=== PATIENT | female | born 1970 ===

== ENCOUNTER → 2025-05-08 13:19 | Outpatient (BNVA) | payer OTHER, SELFPAY | PROVIDERS: Visit Provider Physician Assistant Medical | DX: S63.592A Other specified sprain of left wrist, initial encounter (principal); W01.198A Fall on same level from slipping, tripping and stumbling with subsequent striking against other object, initial encounter; T81.33XA Disruption of traumatic injury wound repair, initial encounter; M79.89 Other specified soft tissue disorders | CPT/HCPCS: 73110; 73130; 99202 ==

== ENCOUNTER 2025-05-14 11:54 | Outpatient (REF) | payer OTHER, SELFPAY ==
--- NOTE | ~2025-05-14 | XR_ITS ---
EXAMINATION: XR HAND 3 OR MORE VIEWS LEFT HISTORY: M79.642 - Pain in left hand COMPARISON: Comparison is made with the prior examination dated 05/08/2025. FINDINGS: Three views of the left hand are submitted. Osseous mineralization is normal. The possible triquetral fracture noted on plain films of the left wrist 05/08/2025 is poorly visualized. Tiny osseous densities of the dorsal aspect of the DIP joints of the index and middle fingers may be the result of old trauma. The joint spaces are preserved. The soft tissues are unremarkable. XR/XR hand LT min 3V IMPRESSION: The possible triquetral fracture noted on plain films of the left wrist is poorly visualized. Electronically signed by: Amado Groves MD 05/14/2025 02:31 PM EDI
== END 2025-05-14 11:55 | disposition home or self-care (01) ==
LOC: HO.HOSX 11:54
DX: S62.112A Displaced fracture of triquetrum [cuneiform] bone, left wrist, initial encounter for closed fracture (principal); M65.4 Radial styloid tenosynovitis [de Quervain]; M77.8 Other enthesopathies, not elsewhere classified; W01.198A Fall on same level from slipping, tripping and stumbling with subsequent striking against other object, initial encounter; Y93.9 Activity, unspecified; Y92.219 Unspecified school as the place of occurrence of the external cause; Y99.0 Civilian activity done for income or pay
CPT/HCPCS: 73130

== ENCOUNTER 2025-05-14 12:56 | Outpatient (AMB) | payer OTHER, SELFPAY ==
--- NOTE | 2025-05-14 13:10 | MHC.OFFVIS ---
Vital Signs 05/14/25 13:11 Height 5 ft 3 in Weight 212 lb BMI 37.6 Handedness Right Intake Visit Reasons: FC: ? LT thumb triquetral fx & TFCC involvement Intake Note: Estela is a 54 year old right hand dominant female, new patient, who presents today for a Fracture Care visit status post Work-related Injury to the Left Hand, DOI: 04/17/25. Patient referred by [facility] for a possible Left Thumb Triquetral Fracture & Triangular Fibrocartilage Complex Involvement status post fall. 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 On day of her injury, 04/17/25, she says she tripped and fell in front of her work building on an out stretched hand. Says she is having pain on radial and ulnar aspect of the leftt hand with occasional radiation through the fingers. 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 HPI HPI FC: ? LT thumb triquetral fx & TFCC involvement: Details: Estela is a 54 year old right hand dominant female, new patient, who presents today for a Fracture Care visit status post Work-related Injury to the Left Hand, DOI: 04/17/25. Patient referred by [facility] for a possible Left Thumb Triquetral Fracture & Triangular Fibrocartilage Complex Involvement status post fall. 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 On day of her injury, 04/17/25, she says she tripped and fell in front of her work building on an out stretched hand. Says she is having pain on radial and ulnar aspect of the leftt hand with occasional radiation through the fingers. 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 [facility] Medical History Injury of left thumb Social History Current occupational status: employed Current occupation: accredited legal secretary Review of Systems Const All systems reviewed & are unremarkable except as noted in HPI and below Physical Exam Vital Signs: BMI result Body Mass Index 37.6 Extrem Other: Patient is alert, oriented, and in no acute distress. Neuro: Normal sensation of the tips of all digits of the left hand at this time Vascular: Cap refill brisk Pain: Tenderness to palpation of the left dorsal hand and wrist Minimal tenderness to palpation of the ulnar styloid Minimal tenderness to palpation of the radial styloid No tenderness to anatomical snuffbox or scaphoid tubercle Positive Micaela on the left Pain with resisted extension in the ulnar aspect of the dorsal left wrist ROM: Patient is able to make a closed fist and extend all digits of the left hand fully Range of motion of the left wrist full and intact, but painful in the ulnar aspect Skin: No lacerations or abrasions. General: No ecchymosis, erythema, or evidence of infection. Psych: Appears grossly normal Affect normal Attitude cooperative Office Procedures AMB Fracture Care Fracture Billing Code: Fracture Billing Code Results Reviewed Results Reviewed: X-rays obtained in the office today and independently reviewed by me, Clifton Barroso PA-C, demonstrate nondisplaced left triquetral avulsion fracture. Assessment & Plan Assessment & Plan (1) De Quervain's tenosynovitis, left: Code(s): M65.4 - Radial styloid tenosynovitis [de Quervain] Category: Medical (2) Extensor carpi ulnaris tendinitis: Code(s): M77.8 - Other enthesopathies, not elsewhere classified Category: Medical (3) Fracture of triquetrum of left wrist: Code(s): S62.112A - Displaced fracture of triquetrum [cuneiform] bone, left wrist, initial encounter for closed fracture Category: Medical Plan Patient is educated about these conditions Patient is educated about the typical recovery course Patient is provided with a Velcro wrist splint to be worn with daytime activities Should remove while at rest to work on gentle range of motion of the left wrist OT referral placed for range of motion and stabilization of the left wrist in the setting of de Quervain tenosynovitis and ECU tendinitis 2 lb weight limit in left hand until follow-up Patient understands this and is amenable to this plan Follow-up in 4 weeks with repeat x-rays for reassessment, sooner with any acute concerns Orders: Orders XR hand LT min 3V 05/14/25 M79.642 - Pain in left hand OT Evaluation and Treatment 05/14/25 M65.4 - Radial styloid tenosynovitis [de Quervain], M77.8 - Other enthesopathies, not elsewhere classified, S62.112A - Displaced fracture of triquetrum [cuneiform] bone, left wrist, initial encounter for closed fracture Coding Level of Care Code New Pt Level 3 (34724) Diagnoses De Quervain's tenosynovitis, left M65.4 Extensor carpi ulnaris tendinitis M77.8 Fracture of triquetrum of left wrist S62.112A CPT Codes Fracture Care - Fracture Billing Code: Fracture Billing Code ([id number])
[2025-05-14 13:11] VITALS: BMI 37.6
== END 2025-05-14 13:50 | disposition home or self-care (01) ==
LOC: HO.HOS 12:56
DX: M65.4 Radial styloid tenosynovitis [de Quervain] (principal); M77.8 Other enthesopathies, not elsewhere classified; S62.112A Displaced fracture of triquetrum [cuneiform] bone, left wrist, initial encounter for closed fracture
CPT/HCPCS: 99203

== ENCOUNTER → 2025-05-14 12:59 | Outpatient (BNV) | payer OTHER, SELFPAY | PROVIDERS: Visit Provider Radiology Diagnostic Radiology | DX: M79.642 Pain in left hand (principal) | CPT/HCPCS: 73130 ==